=== PATIENT | female | born 1990 | race Caucasian/White ===

== ENCOUNTER 2017-09-20 18:24 | Emergency (ER) | payer MEDICAID ==
[~2017-09-20] VITALS: Ht 165.1 cm; Wt 59.4 kg
[~2017-09-20 18:24] MED LIST: ABILIFY 10MG TA10 MG PO; CONCEPT DHA1 CAP PO; LAMICTAL CD5 MG PO; NO HOME MEDICATIONS; NORCO 325 MG-51 TAB PO; PERCOCET 325 MG1 TA2 PO; PHENERGAN 25 TA25 MG PO; PRE-NATAL1 TA1 PO; SEE BELOW; ZOFRAN 4MG T4 MG/TAB PO; [UNRECOGNIZED DRUG - OTHER]
[2017-09-20 18:27] VITALS: TEMP 98.4
[2017-09-20 19:49] LABS: COLLECTION METHOD CLEAN CATCH
[2017-09-20 19:54] LABS: MUCOUS Present /lpf; PH 5 (5-8); SQUAMOUS EPITHELIAL 0-2 /hpf; URINE APPEARANCE Clear; URINE BACTERIA None Seen /hpf; URINE BILIRUBIN Negative (NEGATIVE); URINE BLOOD 2+ (NEGATIVE); URINE COLOR Yellow; URINE GLUCOSE Negative (NEGATIVE); URINE KETONE 1+ (NEGATIVE); URINE LEUKOCYTE ESTERASE Negative (NEGATIVE); URINE PROTEIN(semi-quant) Negative (NEGATIVE); URINE UROBILINOGEN Negative (NEGATIVE)
[2017-09-20 19:59] LABS: BASO % 0.2 % (0.0-2.0); EOS # 0.1 (0.0-0.7); EOS % 0.7 % (0-4.0); GRAN # 6.7 (1.4-6.5); GRAN % 70.9 % (42.2-75.2); HEMATOCRIT 42.4 % (37.0-47.0); HEMOGLOBIN 14.8 g/dl (12.5-16.0); LYMPH # 2.1 (1.2-3.4); LYMPH % 21.7 % (20.0-51.0); MEAN CELL VOLUME 90 fl (80.0-100.0); MEAN CORPUSCULAR HEMOGLOBIN 31 pg (27.0-31.0); MEAN CORPUSCULAR HGB CONC 35 g/dl (33.0-37.0); MONO # 0.6 (0.1-0.6); MONO % 6.2 % (1.7-9.3); PLATELET COUNT 254 K/mm3 (130-400); RED BLOOD COUNT 4.73 M/mm3 (4.10-5.30); WHITE BLOOD COUNT 9.4 K/mm3 (4.8-10.8)
[2017-09-20 20:03] LABS: ADJUSTED CALCIUM 8.9 mg/dL (8.4-10.2); ALANINE AMINOTRANSFERASE 27 U/L (9-52); ALBUMIN 4.8 gm/dL (3.5-5.0); ALKALINE PHOSPHATASE 48 U/L (50-136); ANION GAP 14 mmol/L (7-16); BLOOD UREA NITROGEN 7 mg/dL (7-17); CALCIUM 9.5 mg/dL (8.4-10.2); CARBON DIOXIDE 24 mmol/L (22-30); CHLORIDE 103 mmol/L (98-107); CREATININE, serum 0.56 mg/dL (0.52-1.25); GLUCOSE 144 mg/dL (74-106); LIPASE 82 U/L (23-300); MAGNESIUM 1.9 mg/dL (1.6-2.3); SODIUM 142 mmol/L (137-145)
[2017-09-20 20:04] LABS: ACETAMINOPHEN < 10 ug/mL (10-30); ALCOHOL(ethanol),MEDICAL < 10 mg/dL; SALICYLATE < 1.0 mg/dL
[2017-09-20 20:16] LABS: AMPHETAMINE URINE NEGATIVE; BARBITURATES URINE NEGATIVE; BENZODIAZEPINES URINE NEGATIVE; BUPRENORPHINE URINE NEGATIVE; METHADONE URINE NEGATIVE; OPIATES URINE NEGATIVE; OXYCODONE URINE NEGATIVE; PHENCYCLIDINE URINE NEGATIVE; PROPOXYPHENE URINE NEGATIVE; THC CANNABINOIDS URINE NEGATIVE; TRICYCLIC ANTIDEPRESS URINE NEGATIVE
[2017-09-20 20:45] VITALS: BP 115/63; PULSE 95
[2017-09-20] MEDS ORDERED: K-DUR20 MEQ PO (21:32)
== END 2017-09-20 20:46 | disposition home or self-care (01) ==
LOC: COL.ER 18:24
PROVIDERS: Nurse Practitioner
DX: F10.10 Alcohol abuse, uncomplicated (principal); F31.9 Bipolar disorder, unspecified; Z87.891 Personal history of nicotine dependence; Z32.02 Encounter for pregnancy test, result negative

== ENCOUNTER 2018-01-24 00:01 | Emergency (ER) | payer SELFPAY ==
[~2018-01-24] VITALS: Ht 165.1 cm; Wt 52.3 kg
[~2018-01-24 00:01] MED LIST changes: +K-DUR20 MEQ PO
[2018-01-24 00:03] VITALS: BP 132/89; TEMP 98.5
[2018-01-24] MEDS ORDERED: MIRENA52 MG IY (00:08)
[2018-01-24 00:33] LABS: BASO % 0.3 % (0.0-2.0); EOS # 0.1 (0.0-0.7); EOS % 0.6 % (0-4.0); GRAN # 5.5 (1.4-6.5); GRAN % 61.6 % (42.2-75.2); HEMATOCRIT 42.7 % (37.0-47.0); HEMOGLOBIN 15.5 g/dl (12.5-16.0); LYMPH # 2.8 (1.2-3.4); MEAN CELL VOLUME 88 fl (80.0-100.0); MEAN CORPUSCULAR HEMOGLOBIN 32 pg (27.0-31.0); MEAN CORPUSCULAR HGB CONC 36 g/dl (33.0-37.0); MEAN PLATELET VOLUME 10.6 fl (7.4-10.4); MONO # 0.6 (0.1-0.6); MONO % 6.3 % (1.7-9.3); PLATELET COUNT 223 K/mm3 (130-400); RED BLOOD COUNT 4.86 M/mm3 (4.10-5.30)
[2018-01-24 01:30] VITALS: PULSE 92
== END 2018-01-24 01:30 | disposition home or self-care (01) ==
LOC: COL.ER 00:01
PROVIDERS: Family Medicine
DX: F15.23 Other stimulant dependence with withdrawal (principal); F41.0 Panic disorder [episodic paroxysmal anxiety]

== ENCOUNTER 2018-05-10 10:09 | Emergency (ER) | payer SELFPAY ==
[~2018-05-10] VITALS: Ht 165.1 cm; Wt 50.9 kg
[~2018-05-10 10:09] MED LIST changes: +MIRENA52 MG IY
[2018-05-10 10:15] VITALS: BP 147/60; TEMP 98.4
[2018-05-10] MEDS ORDERED: ZOVIRAX800 MG PO (11:05)
[2018-05-10] MEDS ORDERED: ATARAX 25MG25 MG/TAB PO (11:05)
[2018-05-10 11:10] VITALS: PULSE 76
== END 2018-05-10 11:10 | disposition home or self-care (01) ==
LOC: COL.ER 10:09
DX: B02.9 Zoster without complications (principal); F31.9 Bipolar disorder, unspecified; G43.909 Migraine, unspecified, not intractable, without status migrainosus; Z87.891 Personal history of nicotine dependence

== ENCOUNTER 2018-09-21 16:23 | Emergency (ER) | payer SELFPAY ==
[~2018-09-21] VITALS: Ht 165.1 cm; Wt 50.0 kg
[2018-09-21 16:26] VITALS: BP 109/58; PULSE 86; TEMP 97.9
== END 2018-09-21 16:38 | disposition home or self-care (01) ==
LOC: COL.ER 16:23
DX: Z72.9 Problem related to lifestyle, unspecified (principal)

== ENCOUNTER → 2018-09-21 | Outpatient (REF) | payer SELFPAY ==
[~2018-09-21] MED LIST changes: +ATARAX 25MG25 MG/TAB PO; +ZOVIRAX800 MG PO
== END ==
LOC: LDRO 16:39
DX: T74.21XA Adult sexual abuse, confirmed, initial encounter (principal)

== ENCOUNTER → 2018-09-21 | Outpatient (CLI) | payer SELFPAY | LOC: LDRO 16:36 | DX: T74.21XA Adult sexual abuse, confirmed, initial encounter (principal) | CPT/HCPCS: J0696 ==